=== PATIENT | male | born 1975 | race Caucasian/White ===

== ENCOUNTER 2017-10-30 09:38 | Day surgery (SDC) | payer OTHER ==
[~2017-10-30] VITALS: Ht 188 cm; Wt 131.7 kg
[2017-10-30 10:45] VITALS: BP 120/67; PULSE 77; TEMP 98.6
[2017-10-30] MEDS ORDERED: ZOLOFT 100MG100 MG PO (10:54)
[2017-10-30] MEDS ORDERED: DOSTINEX0.5 MG/TAB PO (10:55)
[2017-10-30] MEDS ORDERED: NORCO 325 MG-51 TAB PO (10:56)
[2017-10-30] MEDS ORDERED: FLOMAX 0.40.4 MG/CAP PO (10:58)
[2017-10-30] MEDS ORDERED: MULTIPLE VITAMI1 CAP PO (10:58)
[2017-10-30 12:25] VITALS: BP 114/63; PULSE 72; TEMP 98.7
[2017-10-30 12:30] VITALS: BP 108/60; PULSE 67
[2017-10-30 12:45] VITALS: BP 111/71; PULSE 66
[2017-10-30 13:00] VITALS: BP 118/72; PULSE 69
[2017-10-30 13:15] VITALS: BP 114/72; PULSE 65
== END 2017-10-30 13:45 | disposition home or self-care (01) ==
LOC: SDCO 09:38
DX: N20.1 Calculus of ureter (principal); F32.9 Major depressive disorder, single episode, unspecified
CPT/HCPCS: C1769; C2617; J1100; J1885; J2405; J2704; J3010; J7120; Q9967

== ENCOUNTER 2023-03-19 08:15 | Day surgery (SDC) | payer BC ==
[~2023-03-19] VITALS: Ht 188 cm; Wt 108.2 kg
[~2023-03-19 08:15] MED LIST: DOSTINEX0.5 MG/TAB PO; FLOMAX 0.40.4 MG/CAP PO; MULTIPLE VITAMI1 CAP PO; NORCO 325 MG-51 TAB PO; ZOLOFT 100MG100 MG PO
[2023-03-19 08:52] VITALS: BP 132/87; PULSE 62; TEMP 96.6
[2023-03-19] MEDS ORDERED: WELLBUTRIN XL150 MG PO (08:54)
[2023-03-19 10:40] VITALS: BP 107/78; PULSE 73; TEMP 97
[2023-03-19 10:55] VITALS: BP 116/84; PULSE 73
--- NOTE | 2023-03-19 11:19 | NUR ---
1040-PT ARRIVED FROM GI SUITE TO BAY 2 VIA CART. PT AMBULATED WITH ASSISTANCE TO RECLINER, WARM BLANKET PROVIDED. VITAL SIGNS TAKEN, VSS. REPORT OBTAINED FROM PRITI CEBALLOS. PT DENIES PAIN OR NAUSEA. PO INTAKE OFFERED. 1055-PT TOLERATING PO INTAKE WELL, VSS. 1110-DISCHARGE INSTRUCTIONS REVIEWED WITH PT AND SPOUSE AT BEDSIDE, QUESTIONS INVITED. PT CHANGED WITH SPOUSE ASSIST AND AMBULATED TO BATHROOM INDEPENDENTLY. IV CATHETER DISCONTINUED, TIP INTACT. PRESSURE DRESSING APPLIED. 1115-PT DISCHARGED HOME TO [facility] VIA WHEELCHAIR, ACCOMPANIED BY SPOUSE. ALL BELONGINGS AND D/C INSTRUCTIONS SENT WITH PT.
== END 2023-03-19 11:15 | disposition home or self-care (01) ==
LOC: SDCO 08:15
DX: Z12.11 Encounter for screening for malignant neoplasm of colon (principal); K63.5 Polyp of colon; E88.2 Lipomatosis, not elsewhere classified; K21.9 Gastro-esophageal reflux disease without esophagitis; D35.2 Benign neoplasm of pituitary gland; R79.89 Other specified abnormal findings of blood chemistry; Z68.34 Body mass index [BMI] 34.0-34.9, adult
CPT/HCPCS: J2704; J7120